=== PATIENT | male | born 1945 | race Asian ===

== ENCOUNTER 2022-08-10 11:21 | Emergency (ER) | payer OTHER ==
[~2022-08-10] VITALS: Ht 160 cm; Wt 59.0 kg
[2022-08-10 11:40] VITALS: BP 160/86
[2022-08-10] MEDS ORDERED: LIDOCAINE 1% HCL (LOCAL ANESTH.) INJ 20ML MDV ONE (13:03)
[2022-08-10] MEDS ORDERED: cefTRIAXone SOD 1,000 MG VL IM ONE (13:15)
[2022-08-10] MEDS ORDERED: TETANUS-DIPTH-ACEL PERTUSSIS 0.5ML SYR Tdap IM ONE (13:15)
[2022-08-10] MEDS ORDERED: ACET-1080 PO (13:17)
[2022-08-10] MEDS ORDERED: CEPH500C PO (13:17)
== END 2022-08-10 14:02 | disposition home or self-care (01) ==
LOC: ER 11:25
DX: S92.421A Displaced fracture of distal phalanx of right great toe, initial encounter for closed fracture (principal); S91.211A Laceration without foreign body of right great toe with damage to nail, initial encounter; Z79.899 Other long term (current) drug therapy; W20.8XXA Other cause of strike by thrown, projected or falling object, initial encounter; Y93.89 Activity, other specified; Y92.89 Other specified places as the place of occurrence of the external cause; Y99.8 Other external cause status
CPT/HCPCS: 12002; 73630; 90471; 90715; 96372; 99284; J0696; J2001